=== PATIENT | female | born 1955 | race Caucasian/White ===

== ENCOUNTER → 2023-02-13 | Outpatient (CLI) | payer MEDICARE, BC ==
[~2023-02-13] MED LIST: BACTRIM DS 8001 TAB; BACTRIM DS 8001 TAB PO; CEPHALEXIN500 M1 PO; FOSAMAX 35MG35 MG PO; NAPROSYN 2250 MG/TAB PO; NORCO 325 MG-51 TAB PO; PERCOCET 325 MG1 TA2 PO; STIVARGA PO; TYLENOL 325MG325 MG PO; VESICARE10 MG PO; ZOCOR 20MG20 MG PO; ZOLOFT 50MG50 MG PO
[2023-02-13 06:48] VITALS: BP 138/82; PULSE 73; TEMP 97.6
== END ==
LOC: COL.ER 06:20
DX: Z48.02 Encounter for removal of sutures (principal)

== ENCOUNTER 2023-02-28 14:52 | Emergency (ER) | payer MEDICARE, BC ==
[~2023-02-28] VITALS: Ht 157.5 cm; Wt 68.2 kg
[~2023-02-28 14:52] MED LIST changes: -BACTRIM DS 8001 TAB; -FOSAMAX 35MG35 MG PO; -NORCO 325 MG-51 TAB PO; -STIVARGA PO; -VESICARE10 MG PO; -ZOCOR 20MG20 MG PO; -ZOLOFT 50MG50 MG PO
[2023-02-28 14:57] VITALS: TEMP 97.9
[2023-02-28 15:30] LABS: BASO # 0.1 K/mm3 (0.0-0.2); BASO % 0.9 % (0.0-2.0); EOS # 0.5 K/mm3 (0.0-0.7); EOS % 4.6 % (0.0-4.0); GRAN # 6.3 K/mm3 (1.4-6.5); GRAN % 61.2 % (42.2-75.2); HEMATOCRIT 43.9 % (37.0-47.0); LYMPH # 2.3 K/mm3 (1.2-3.4); LYMPH % 22.9 % (20.0-51.0); MEAN CELL VOLUME 91 fl (80.0-100.0); MEAN CORPUSCULAR HEMOGLOBIN 29 pg (27-31); MEAN CORPUSCULAR HGB CONC 32 g/dl (33.0-37.0); MEAN PLATELET VOLUME 10.2 fl (7.4-10.4); MONO % 9.6 % (1.7-9.3); PLATELET COUNT 293 K/mm3 (130-400); RED BLOOD COUNT 4.81 M/mm3 (4.10-5.30); REDCELL DISTRIBUTION WIDTH-CV 13.6 % (11.5-14.5)
[2023-02-28 15:52] LABS: ALBUMIN 3.4 gm/dL (3.4-4.8); BILIRUBIN,TOTAL 0.2 mg/dL (0.2-1.2); CALCIUM 8.9 mg/dL (8.4-10.2); CREATININE, serum 1.16 mg/dL (0.57-1.11); POTASSIUM 4.3 mmol/L (3.5-4.5); TOTAL PROTEIN 7.1 gm/dL (6.2-8.1)
[2023-02-28 18:35] LABS: INR 0.9 (0.8-3.0); PROTHROMBIN TIME 10.3 SECONDS (9.7-12.8)
[2023-02-28 18:38] LABS: PARTIAL THROMBOPLASTIN TIME 31.3 SECONDS (26.0-37.0)
[2023-02-28] MEDS ORDERED: NORCO 325 MG-51 TAB PO (19:29)
[2023-02-28] MEDS ORDERED: STIVARGA PO (19:30)
[2023-02-28] MEDS ORDERED: ZOLOFT 50MG50 MG PO (19:31)
[2023-02-28] MEDS ORDERED: ZOCOR 20MG20 MG PO (19:32)
[2023-02-28] MEDS ORDERED: BACTRIM DS 8001 TAB (19:33)
[2023-02-28] MEDS ORDERED: FOSAMAX 35MG35 MG PO (19:33)
[2023-02-28] MEDS ORDERED: VESICARE10 MG PO (19:34)
[2023-02-28 20:44] VITALS: BP 143/60; PULSE 76
== END 2023-02-28 20:24 | disposition short-term general hospital (02) ==
LOC: COL.ER 14:52
PROVIDERS: Emergency Medicine
DX: I77.1 Stricture of artery (principal)
CPT/HCPCS: J1644; Q9967

== ENCOUNTER → 2023-12-22 | Outpatient (CLI) | payer MEDICARE, BC ==
[~2023-12-22] MED LIST changes: +Albuterol 0.083% Neb Soln 2.5 MG/3 ML UD IH ONE; +BACTRIM DS 8001 TAB; +FOSAMAX 35MG35 MG PO; +NORCO 325 MG-51 TAB PO; +STIVARGA PO; +VESICARE10 MG PO; +ZOCOR 20MG20 MG PO; +ZOLOFT 50MG50 MG PO
== END ==
LOC: COL.CARD 09:39
DX: J44.9 Chronic obstructive pulmonary disease, unspecified (principal)

== ENCOUNTER → 2024-01-12 | Outpatient (CLI) | payer MEDICARE, BC ==
[~2024-01-12] MED LIST changes: -Albuterol 0.083% Neb Soln 2.5 MG/3 ML UD IH ONE
== END ==
LOC: MC.RAD 07:09
DX: Z12.31 Encounter for screening mammogram for malignant neoplasm of breast (principal)